=== PATIENT | male | born 1990 | race Caucasian/White ===

== ENCOUNTER 2019-02-18 11:44 | Emergency (ER) | payer SELFPAY ==
[2019-02-18] MEDS ORDERED: ASPIRIN 81 MG TABLET, CHEWABLE PO ONE (11:54)
--- NOTE | 2019-02-18 11:54 | ER Document Report ---
ED Medical Screen (RME) - General Chief Complaint: Chest Pain Stated Complaint: CHEST PAIN Time Seen by Provider: 02/18/19 11:51 Primary Care Provider: FIDENCIO COLBERT MD [Primary Care Provider] - Follow up as needed Mode of Arrival: Ambulatory Information source: Patient Notes: 28-year-old male presented to ED for complaint of pain to the left upper chest shoulder down the left arm and a tightness in his throat that makes it difficult to swallow. He states he is also having some shortness of breath his blood pressure is 138/89 pulse is 72 O2 sat is 100% patient is alert oriented respirations regular nonlabored at this moment. Pain at this moment is 3/5 sharp and pressure at this time he states it comes in waves. I have greeted and performed a rapid initial assessment of this patient. A comprehensive ED assessment and evaluation of the patient, analysis of test results and completion of medical decision making process will be conducted by an additional ED providers. Doctor's Discharge - Discharge Referrals: FIDENCIO COLBERT MD [Primary Care Provider] - Follow up as needed
[2019-02-18 12:31] LABS: ABSOLUTE BASOPHILS # (AUTO) 0.1 10^3/uL (0.0-0.2); ABSOLUTE EOSINOPHILS # (AUTO) 0.1 10^3/uL (0.0-0.6); ABSOLUTE MONOCYTES (AUTO) 0.5 10^3/uL (0.1-1.4); ABSOLUTE NEUT (AUTO) 4.6 10^3/uL (1.7-8.2); BASOPHILS % (AUTO) 0.8 % (0-2); EOSINOPHILS % (AUTO) 0.8 % (0-6); HEMATOCRIT 45.1 % (37.9-51.0); HEMOGLOBIN 15.8 g/dL (13.5-17.0); LYMPHOCYTES % (AUTO) 28.2 % (13-45); MEAN CORPUSCULAR HEMOGLOBIN 30.6 pg (27.0-33.4); MEAN CORPUSCULAR HGB CONC 35.1 g/dL (32.0-36.0); MEAN CORPUSCULAR VOLUME 87 fl (80-97); MONOCYTES % (AUTO) 6.5 % (3-13); PLATELET COUNT 333 10^3/uL (150-450); RED BLOOD COUNT 5.17 10^6/uL (4.35-5.55); RED CELL DISTRIBUTION WIDTH 12.7 % (11.5-14.0); SEGMENTED NEUTROPHILS % (AUTO) 63.7 % (42-78); TOTAL CELLS COUNTED % (AUTO) 100 %; WHITE BLOOD COUNT 7.3 10^3/uL (4.0-10.5)
[2019-02-18 12:38] LABS: APPEARANCE,URINE CLEAR; BILIRUBIN,URINE NEGATIVE (NEGATIVE); COLOR,URINE YELLOW; GLUCOSE, URINE NEGATIVE (NEGATIVE); KETONES,URINE TRACE mg/dL (NEGATIVE); PROTEIN,URINE NEGATIVE (NEGATIVE); URINE SPECIFIC GRAVITY 1.021; UROBILINOGEN,URINE NEGATIVE mg/dL (<2.0)
[2019-02-18 12:54] LABS: ALBUMIN 4.9 g/dL (3.5-5.0); ALKALINE PHOSPHATASE 81 U/L (38-126); ANION GAP 9 (5-19); ASPARTATE AMINO TRANSFERASE 26 U/L (17-59); BLOOD UREA NITROGEN 11 mg/dL (7-20); CALCIUM 9.9 mg/dL (8.4-10.2); CARBON DIOXIDE 29 mmol/L (22-30); CHLORIDE 100 mmol/L (98-107); CREATINE KINASE 74 U/L (55-170); GLUCOSE 82 mg/dL (75-110); POTASSIUM 3.9 mmol/L (3.6-5.0); TOTAL PROTEIN 7.9 g/dL (6.3-8.2)
[2019-02-18 13:04] LABS: CREATINE KINASE MB 0.36 ng/mL (<4.55); NT PRO BNP 68 pg/mL (<125)
[2019-02-18 13:05] LABS: TROPONIN I < 0.012 ng/mL
--- NOTE | 2019-02-18 13:05 | EKG REPORT ---
SEVERITY:- NORMAL ECG - SINUS RHYTHM : Confirmed by: Aiden Stone MD 18-Feb-2019 13:04:08
--- NOTE | 2019-02-18 14:00 | ER Document Report ---
ED General - General Chief Complaint: Chest Pain Stated Complaint: CHEST PAIN Time Seen by Provider: 02/18/19 11:51 Primary Care Provider: FIDENCIO COLBERT MD [EMERITUS] - Follow up as needed Mode of Arrival: Ambulatory TRAVEL OUTSIDE OF THE [place] IN LAST 30 DAYS: No - HPI Notes: Patient presents with sharp pleuritic pain mid left chest with mild radiation into the shoulder and feeling like he has a problem swallowing. This started approximately 10:30 AM and waxed and waned up until coming to the emergency department and he is currently asymptomatic at this time. He states this is happened in the past and usually last several hours over the last 2 years. History of chronic constipation on mag citrate every other day otherwise no other known medical problems no heart history he is adopted so he does not know his family history. No recent cough congestion or fevers - Related Data Allergies/Adverse Reactions: No Known Allergies Allergy (Unverified 02/18/19 11:54) Past Medical History - General Information source: Patient - Social History Smoking Status: Current Every Day Smoker Chew tobacco use (# tins/day): Yes Frequency of alcohol use: None Drug Abuse: None Family History: Reviewed & Not Pertinent Patient has suicidal ideation: No Patient has homicidal ideation: No Past Surgical History: Reports: Hx Tonsillectomy Review of Systems - Review of Systems Constitutional: No symptoms reported EENT: No symptoms reported Cardiovascular: See HPI Respiratory: No symptoms reported Gastrointestinal: No symptoms reported Genitourinary: No symptoms reported Male Genitourinary: No symptoms reported Musculoskeletal: No symptoms reported Skin: No symptoms reported Hematologic/Lymphatic: No symptoms reported Neurological/Psychological: No symptoms reported Physical Exam - Vital signs Vitals: Resp 19 02/18/19 12:57 - General General appearance: Appears well, Alert - HEENT Head: Normocephalic, Atraumatic Eyes: Normal Pupils: PERRL - Respiratory Respiratory status: No respiratory distress Chest status: Nontender Breath sounds: Normal Chest palpation: Normal - Cardiovascular Rhythm: Regular Heart sounds: Normal auscultation Murmur: No - Abdominal Inspection: Normal Distension: No distension Bowel sounds: Normal Tenderness: Nontender Organomegaly: No organomegaly - Back Back: Normal, Nontender Course - Re-evaluation Re-evalutation: 02/18/19 13:59 Patient is PERC negative, low risk heart score. His symptoms have been consistent with previous encounters multiple times over the last 2 years. No known medical problems other than chronic constipation. His work-up shows no acute abnormalities labs are within normal limits are nonsignificant with no concerning findings on EKG. Pending chest x-ray at this time that was not taken in triage 02/18/19 15:03 Clear chest x-ray no acute findings on chest x-ray. Patient will be discharged at this time. Discussed This happens to take an ibuprofen to see if this helps with the symptoms or not. - Vital Signs Vital signs: Temp Pulse Resp BP Pulse Ox 98.6 F 13 128/75 H 98 02/18/19 15:42 02/18/19 15:42 02/18/19 15:42 02/18/19 15:42 - Laboratory Result Diagrams: 02/18/19 12:15 02/18/19 12:15 Laboratory results interpreted by me: 02/18/19 12:15 Urine Ketones TRACE H - Diagnostic Test Radiology reviewed: Reports reviewed - EKG Interpretation by Me Additional EKG results interpreted by me: 02/18/19 14:00 Time 11:49 AM Rate of 68, normal sinus rhythm, normal axis and intervals, normal EKG Discharge - Discharge Clinical Impression: Chest pain Qualifiers: Chest pain type: unspecified Qualified Code(s): R07.9 - Chest pain, unspecified Disposition: HOME, SELF-CARE Instructions: Chest Pain of Unclear Cause ([facility]) Additional Instructions: Consider using ibuprofen next time this pain occurs to see if it helps with your symptoms. Referrals: FIDENCIO COLBERT MD [EMERITUS] - Follow up as needed
--- NOTE | 2019-02-18 14:20 | RADIOLOGY REPORT (SQ) ---
EXAM DESCRIPTION: CHEST SINGLE VIEW COMPLETED DATE/TIME: 02/18/2019 2:10 pm REASON FOR STUDY: chest pain COMPARISON: None. NUMBER OF VIEWS: One view. TECHNIQUE: Single frontal radiographic view of the chest acquired. LIMITATIONS: None. FINDINGS: LUNGS AND PLEURA: No opacities, masses or pneumothorax. No pleural effusion. MEDIASTINUM AND HILAR STRUCTURES: No masses. Contour normal. HEART AND VASCULAR STRUCTURES: Heart normal in size. Normal vasculature. BONES: No acute findings. HARDWARE: None in the chest. OTHER: No other significant finding. IMPRESSION: NO SIGNIFICANT RADIOGRAPHIC FINDING IN THE CHEST. TECHNICAL DOCUMENTATION: JOB ID: [id number] [employer]- All Rights Reserved Reading location - IP/workstation name: [email or web address]
[2019-02-18 14:44] LABS: PROTHROMBIN TIME 14.2 SEC (11.4-15.4)
[2019-02-18 14:45] LABS: PARTIAL THROMBOPLASTIN TIME 30.3 SEC (23.5-35.8)
[2019-02-18 15:48] VITALS: BP 128/75
== END 2019-02-18 15:49 | disposition home or self-care (01) ==
LOC: ER 11:44
DX: R07.9 Chest pain, unspecified (principal); M25.512 Pain in left shoulder; R13.10 Dysphagia, unspecified; F17.290 Nicotine dependence, other tobacco product, uncomplicated
CPT/HCPCS: 36415; 71045; 80053; 81001; 82550; 82553; 83690; 83735; 83880; 84443; 84484; 85025; 85610; 85730; 93005; 93010

== ENCOUNTER → 2019-10-21 | Outpatient (CLI) | payer SELFPAY ==
--- NOTE | 2019-10-21 18:20 | RADIOLOGY REPORT (SQ) ---
EXAM DESCRIPTION: ACUTE ABDOMEN SERIES IMAGES COMPLETED DATE/TIME: 10/21/2019 5:13 pm REASON FOR STUDY: R10.32 LEFT LOWER QUADRANT PAIN R10.32 LEFT LOWER QUADRANT PAIN COMPARISON: None. NUMBER OF VIEWS: Three views. TECHNIQUE: Frontal chest, supine abdomen and upright/decubitus abdomen radiographic images acquired. LIMITATIONS: None. FINDINGS: CHEST: Lungs clear of infiltrates. FREE AIR: None. No abnormal gas collections. BOWEL GAS PATTERN: Nonobstructive pattern. No dilated loops or air fluid levels. CALCIFICATIONS: No suspicious calcifications. HARDWARE: None in the abdomen. SOFT TISSUES: No gross mass or suggestion of organomegaly. BONES: No acute fracture. No worrisome bone lesions. OTHER: No other significant finding. IMPRESSION: NO RADIOGRAPHIC EVIDENCE FOR ACUTE ABDOMINAL DISEASE. TECHNICAL DOCUMENTATION: JOB ID: [id number] 2010 [employer]- All Rights Reserved Reading location - IP/workstation name: [email or web address]
== END ==
LOC: RAD 16:58
PROVIDERS: ATTEND Family Medicine
DX: R10.32 Left lower quadrant pain (principal)
CPT/HCPCS: 74022